=== PATIENT | female | born 1975 | race Caucasian/White ===

== ENCOUNTER 2018-06-04 07:17 | Emergency (ER) | payer SELFPAY ==
[~2018-06-04] VITALS: Ht 162.6 cm; Wt 63.0 kg
[2018-06-04 07:22] VITALS: BP 101/55
[2018-06-04] MEDS: KETOROLAC 60 MG/2 ML VIAL IM ONE (07:45)
[2018-06-04 08:01] VITALS: BP 130/90
== END 2018-06-04 08:01 | disposition home or self-care (01) ==
LOC: MED 07:17
DX: N39.0 Urinary tract infection, site not specified (principal); Z87.442 Personal history of urinary calculi
CPT/HCPCS: 81002; 81025; 96372; 99283; J1885

== ENCOUNTER 2018-06-18 23:48 | Emergency (ER) | payer MEDICAID ==
[~2018-06-18] VITALS: Ht 160 cm; Wt 65.8 kg
[2018-06-19 01:08] LABS: BASOPHILS # (AUTO) 0.1 K/uL (0.00-0.22); BASOPHILS % (AUTO) 0.6 % (0.0-2.0); EOSINOPHILS # (AUTO) 0.1 K/uL (0-0.4); HEMATOCRIT 35.6 % (36-48); HEMOGLOBIN 11.4 g/dL (12.0-16.0); LYMPHOCYTES # (AUTO) 1.7 K/uL (2.5-16.5); LYMPHOCYTES % (AUTO) 14.1 % (20.5-51.1); MEAN CORPUSCULAR HEMOGLOBIN 26 pg (27-31); MEAN CORPUSCULAR HGB CONC 32 g/dL (33-37); MEAN CORPUSCULAR VOLUME 80.5 fL (80-94); MONOCYTES # (AUTO) 1.1 K/uL (0.8-1.0); MONOCYTES % (AUTO) 9.1 % (1.7-9.3); NEUTROPHILS % (AUTO) 75.2 % (42.2-75.2); PLATELET COUNT (AUTO) 223 K/uL (140-450); RED BLOOD CELL COUNT(AUTO) 4.42 MIL/uL (4.20-5.40); RED CELL DISTRIBUTION WIDTH 15.5 % (11.6-13.7); WHITE BLOOD COUNT (AUTO) 11.9 K/uL (4.8-10.8)
[2018-06-19 01:18] LABS: ANION GAP 11.5 (8-16); CREATININE 0.8 mg/dL (0.6-1.3); POTASSIUM 3.5 mmol/L (3.5-5.1)
[2018-06-19 01:25] LABS: ALBUMIN 3.7 g/dL (3.4-5.0); TOTAL BILIRUBIN 0.2 mg/dL (0.0-1.0)
[2018-06-19] MEDS ORDERED: MORPHINE SULFATE 4 MG/ML SYR IM ONE (01:30)
[2018-06-19] MEDS ORDERED: KETOROLAC 30 MG/ML VIAL IVP ONE ×2 (01:30→02:10)
[2018-06-19] MEDS ORDERED: ONDANSETRON 4 MG/2 ML VIAL IVP ONE (01:30)
[2018-06-19 01:37] LABS: APPEARANCE,URINE SL CLOUDY (CLEAR); BILIRUBIN,URINE NEGATIVE (NEGATIVE); BLOOD, URINE TRACE-I (NEGATIVE); COLOR,URINE YELLOW (YELLOW); LEUKOCYTE ESTERASE ,URINE NEGATIVE (NEGATIVE); NITRITE, URINE NEGATIVE (NEGATIVE); PH,URINE 6.5 (5.0-9.0); UGLUCOSE NEGATIVE (NEGATIVE)
[2018-06-19 01:46] LABS: CALCIUM OXALATE CRYSTALS,UR 0-10 /HPF (None Seen); RBC,URINE 3-10 (FEW) /HPF (0-5); WBC,URINE 0-5 (RARE) /HPF (0-5)
[2018-06-19] MEDS ORDERED: NACL 0.9% 1,000 ML IV ONE (01:55)
[2018-06-19] MEDS ORDERED: MORPHINE SULFATE 4 MG/ML SYR IVP ONE ×2 (01:55→02:10)
[2018-06-19 03:22] VITALS: BP 109/60
== END 2018-06-19 03:21 | disposition home or self-care (01) ==
LOC: MED 23:48
DX: N20.1 Calculus of ureter (principal)
CPT/HCPCS: 36415; 74176; 80053; 81001; 81002; 81025; 83690; 85025; 87086; 96361; 96374; 96375; 96376; 99284; J1885; J2270; J2405; J7030

== ENCOUNTER 2019-09-04 08:38 | Emergency (ER) | payer MEDICAID ==
[~2019-09-04] VITALS: Ht 162.6 cm; Wt 61.2 kg
[2019-09-04 08:42] VITALS: BP 131/93
--- NOTE | 2019-09-04 08:44 | NUR ---
PT AMBULATED TO BED 11 WITH STEADY GAIT
--- NOTE | 2019-09-04 08:51 | NUR ---
44 Y/O F C/C HEADACHE/DIZZINESS/NAUSEA SINCE MONDAY. PER PT TAKEN MEDICATION WITH NO RELIEF. PAIN 03/02, PRESSURE SENSATION. PT NKA. HX MIGRAINES. NO RX. NO V/D. NEURO ASSESSMENT WDL. CRANIAL NERVES II,III,IV,V,,VII,XII INTACT. SIDE RAIL X1. FAMILY AT BEDSIDE.
[2019-09-04] MEDS ORDERED: diphenhydrAMINE 50 MG/ML VIAL IVP ONE (08:55)
[2019-09-04] MEDS ORDERED: NACL 0.9% 1,000 ML IV ONE (08:55)
[2019-09-04] MEDS ORDERED: SUMAtriptan 6 MG/0.5 ML VIAL SUBQ ONE (08:55)
[2019-09-04] MEDS ORDERED: KETOROLAC 30 MG/ML VIAL IVP ONE (08:55)
--- NOTE | 2019-09-04 08:56 | NUR ---
Dr. Abbott is evaluating the patient at bedside.
[2019-09-04] MEDS ORDERED: LORazepam 2 MG/ML VIAL IVP ONE (09:40)
[2019-09-04] MEDS ORDERED: ACETAMINOPHEN 325 MG TAB PO ONE (09:40)
--- NOTE | 2019-09-04 10:32 | NUR ---
PATIENT RESTING IN BED, SIDE RAIL X1
[2019-09-04 11:19] VITALS: BP 131/93
--- NOTE | 2019-09-04 11:19 | NUR ---
IV removed, catheter intact and site benign. Applied folded 4x4 gauze and tape to stop bleeding.
--- NOTE | 2019-09-04 11:20 | NUR ---
Patient discharged with v/s stable. Written and verbal after care instructions given and explained. Patient alert, oriented and verbalized understanding of instructions. Ambulatory with steady gait. All questions addressed prior to discharge. ID band removed. Patient advised to follow up with PMD. Rx of MAXALT, MOTRIN given. Patient educated on indication of medication including possible reaction and side effects. Opportunity to ask questions provided and answered.
== END 2019-09-04 11:20 | disposition home or self-care (01) ==
LOC: MED 08:38
DX: R51 Headache (principal); R11.0 Nausea
CPT/HCPCS: 96372; 96374; 96375; 99284; J1200; J1885; J2060; J3030; J7030